=== PATIENT | male | born 1960 | race Two or more races ===

== ENCOUNTER 2022-07-26 19:53 | Emergency (ER) | payer OTHER ==
[~2022-07-26] VITALS: Ht 185.4 cm; Wt 104.5 kg
[2022-07-26] MEDS ORDERED: ONDANSETRON ODT 4 MG TAB PO ONE (22:00)
[2022-07-26] MEDS ORDERED: HYDROcodone-ACET 10/325MG TAB PO ONE (22:00)
[2022-07-26] MEDS ORDERED: ACE3T PO (22:05)
[2022-07-26] MEDS ORDERED: CYCL-837 PO (22:10)
[2022-07-26] MEDS ORDERED: IBUP800T27 PO (22:10)
[2022-07-27 01:59] VITALS: BP 116/72
== END 2022-07-27 02:03 | disposition home or self-care (01) ==
LOC: ER 19:53
DX: S22.41XA Multiple fractures of ribs, right side, initial encounter for closed fracture (principal); S92.411A Displaced fracture of proximal phalanx of right great toe, initial encounter for closed fracture; Z98.890 Other specified postprocedural states; W11.XXXA Fall on and from ladder, initial encounter; Y93.89 Activity, other specified; Y92.89 Other specified places as the place of occurrence of the external cause; Y99.8 Other external cause status
CPT/HCPCS: 71250; 73600; 73630; 73700; 99284; Q0162